=== PATIENT | male | born 1945 | race Caucasian/White ===

== ENCOUNTER 2020-06-26 20:45 | Observation (INO) | payer MEDICARE, BC ==
[~2020-06-26] VITALS: Ht 177.8 cm; Wt 93.7 kg
[~2020-06-26 20:45] MED LIST: ASPIRIN E.C. 8181 MG PO; ATORVASTATIN PO; AVAPRO TAB150 MG/TAB PO; TRICOR145 MG PO; ZETIA10 MG PO
[2020-06-26 21:42] LABS: ALBUMIN 4.4 gm/dL (3.5-5.0); BILIRUBIN,TOTAL 0.4 mg/dL (0.0-1.0); CALCIUM 9.9 mg/dL (8.4-10.2); CREATININE, serum 0.81 (0.66-1.25); POTASSIUM 3.5 mmol/L (3.4-5.0); TOTAL PROTEIN 7.5 gm/dL (6.4-8.2)
[2020-06-26 21:43] LABS: BASO # 0.1 (0.0-0.2); BASO % 0.9 % (0.0-2.0); EOS # 0.5 (0.0-0.7); EOS % 9.1 % (0-4.0); GRAN # 2.7 (1.4-6.5); HEMATOCRIT 41.4 % (42.0-52.0); HEMOGLOBIN 14.1 g/dl (13.5-18.0); LYMPH # 1.3 (1.2-3.4); LYMPH % 24.4 % (20.0-51.0); MEAN CELL VOLUME 93 fl (80.0-100.0); MEAN CORPUSCULAR HEMOGLOBIN 32 pg (27.0-31.0); MEAN CORPUSCULAR HGB CONC 34 g/dl (33.0-37.0); MEAN PLATELET VOLUME 11.2 fl (7.4-10.4); MONO # 0.7 (0.1-0.6); MONO % 13.4 % (1.7-9.3); PLATELET COUNT 209 K/mm3 (130-400); RED BLOOD COUNT 4.45 M/mm3 (4.20-5.60); REDCELL DISTRIBUTION WIDTH-CV 12.6 % (11.5-14.5)
[2020-06-27] VITALS (14 sets, daily range): BP systolic 133–167; BP diastolic 86–100; PULSE 72–91; TEMP 97.6–98.4; O2SAT 92–96
[2020-06-27] MEDS ORDERED: COZAAR 25MG25 MG/TAB PO (00:04)
[2020-06-27] MEDS ORDERED: ZOCOR5 MG PO (00:06)
[2020-06-27] MEDS ORDERED: SYNTHROID 0.0.025 MG PO (00:08)
[2020-06-27 04:48] LABS: BASO % 0.4 % (0.0-2.0); EOS # 0.4 (0.0-0.7); EOS % 5.8 % (0-4.0); GRAN # 5.2 (1.4-6.5); HEMATOCRIT 41.8 % (42.0-52.0); HEMOGLOBIN 14.3 g/dl (13.5-18.0); LYMPH # 0.8 (1.2-3.4); LYMPH % 11.5 % (20.0-51.0); MEAN CELL VOLUME 94 fl (80.0-100.0); MEAN CORPUSCULAR HEMOGLOBIN 32 pg (27.0-31.0); MEAN CORPUSCULAR HGB CONC 34 g/dl (33.0-37.0); MEAN PLATELET VOLUME 11.1 fl (7.4-10.4); MONO # 0.7 (0.1-0.6); PLATELET COUNT 205 K/mm3 (130-400); RED BLOOD COUNT 4.44 M/mm3 (4.20-5.60); REDCELL DISTRIBUTION WIDTH-CV 12.5 % (11.5-14.5)
[2020-06-27 05:04] LABS: CALCIUM 9.8 mg/dL (8.4-10.2); CREATININE, serum 0.71 (0.66-1.25); MAGNESIUM 1.8 mg/dL (1.6-2.3); POTASSIUM 3.9 mmol/L (3.4-5.0)
[2020-06-27 05:33] LABS: TSH w REFLEX 3.99 uIU/mL (0.465-4.680)
--- NOTE | 2020-06-27 08:00 | NUR ---
Shift assessment complete at this time. Additional time taken to address any other needs or concerns. Vitals stable at this time. Pt denies pain or any other discomforts. Bed in low et locked position, call light within reach, will continue to monitor.
[2020-06-27 10:53] LABS: CLOSTRIDIUM DIFF A/B NEG; CLOSTRIDIUM DIFF A/B INTERP NonToxigenic C.diff
[2020-06-27] MEDS ORDERED: CORDARONE200 MG/TAB PO ×2 (11:25→14:44)
[2020-06-27] MEDS ORDERED: PACERONE400 MG PO ×2 (11:42)
[2020-06-27] MEDS ORDERED: ASPIRIN E.C. 8181 MG PO (11:42)
[2020-06-27] MEDS ORDERED: PROTONIX 40MG T40 MG PO (11:42)
== END 2020-06-27 13:20 | disposition home or self-care (01) ==
LOC: COL.ER 20:45 → ICU 22:37
PROVIDERS: Family Medicine; Physician Assistant; ADMIT Hospitalist
DX: T18.128A Food in esophagus causing other injury, initial encounter (principal); K22.2 Esophageal obstruction; K26.9 Duodenal ulcer, unspecified as acute or chronic, without hemorrhage or perforation; K29.80 Duodenitis without bleeding; K29.50 Unspecified chronic gastritis without bleeding; R13.10 Dysphagia, unspecified; J38.3 Other diseases of vocal cords; I48.0 Paroxysmal atrial fibrillation; I10 Essential (primary) hypertension; E78.5 Hyperlipidemia, unspecified; E03.9 Hypothyroidism, unspecified; G47.33 Obstructive sleep apnea (adult) (pediatric); J44.9 Chronic obstructive pulmonary disease, unspecified; Z87.891 Personal history of nicotine dependence; Z79.899 Other long term (current) drug therapy; Z98.890 Other specified postprocedural states; Z79.82 Long term (current) use of aspirin; Z86.73 Personal history of transient ischemic attack (TIA), and cerebral infarction without residual deficits
CPT/HCPCS: G0378; J1610; J2405; J2704; J3010; J7120